=== PATIENT | male | born 1955 | race Asian ===

== ENCOUNTER 2016-12-03 17:06 | Inpatient (IN) | payer MEDICAID ==
[~2016-12-03] VITALS: Ht 167.6 cm; Wt 96.8 kg
[~2016-12-03 17:06] MED LIST: ALBU8.5H IH; ALLO100T PO; AMLO-511 PO; ASPI-556 PO; ATOR10TA84 PO; BECL8.7A5 IH; CARV12 PO; FAMO20 PO; FURO20 PO; GABA-531 PO; LISI-662 PO; MONT10TA21 PO; TAMS0.4C32 PO
[2016-12-03] MEDS ORDERED: FURO40 PO (17:36)
[2016-12-03] MEDS ORDERED: LISI-662 PO (17:36)
[2016-12-03] MEDS ORDERED: ATOR10TA84 PO (17:36)
[2016-12-03] MEDS ORDERED: TAMS0.4C32 PO (17:36)
[2016-12-03] MEDS ORDERED: ASPI81 PO (17:36)
[2016-12-03] MEDS ORDERED: CARV12 PO (17:37)
[2016-12-03] MEDS ORDERED: ISON100L PO (17:37)
[2016-12-03] MEDS ORDERED: ALLO100T PO (17:37)
[2016-12-03] MEDS ORDERED: AMLO-511 PO (17:37)
[2016-12-03] MEDS ORDERED: FAMO20 PO (17:38)
[2016-12-03] MEDS ORDERED: PYRI50 PO (17:38)
[2016-12-03] MEDS ORDERED: MONT10TA21 PO (17:38)
[2016-12-03 18:52] LABS: BASOPHILS % (AUTO) 0.3 % (0.0-2.0); EOSINOPHILS % (AUTO) 1.4 % (1.0-6.0); HEMATOCRIT 44.6 % (41-53); HEMOGLOBIN 14.9 g/dL (13.5-17.5); LYMPHOCYTES # (AUTO) 1.5 K/uL (1.0-4.8); LYMPHOCYTES % (AUTO) 12.6 % (22.0-44.0); MEAN CORPUSCULAR HEMOGLOBIN 32.7 pg (26.0-34.0); MEAN CORPUSCULAR HGB CONC 33.3 G/dL (31.0-37.0); MEAN CORPUSCULAR VOLUME 98 fL (80-100); MONOCYTES % (AUTO) 8.2 % (2.0-9.0); NEUTROPHILS # (AUTO) 9.5 K/uL (1.8-7.7); NEUTROPHILS % (AUTO) 77.5 % (40.0-70.0); PLATELET COUNT (AUTO) 245 K/uL (150-450); RED BLOOD CELL COUNT(AUTO) 4.55 MIL/uL (4.50-5.90); RED CELL DISTRIBUTION WIDTH 13.8 % (11.5-14.5); WHITE BLOOD COUNT (AUTO) 12.2 K/uL (4.5-11.0)
[2016-12-03 19:00] LABS: CREATININE 1.31 mg/dL (0.60-1.30); POTASSIUM 3.4 mmol/L (3.5-5.1)
[2016-12-03 19:05] LABS: ALBUMIN 3.9 g/dL (3.4-5.0); BILIRUBIN,TOTAL 0.7 mg/dL (0.1-1.0); TOTAL PROTEIN, SERUM 7.8 g/dL (6.4-8.2)
[2016-12-03] MEDS ORDERED: ONDANSETRON HCL 4 MG/2 ML VIAL IVP PRN (20:15)
[2016-12-03] MEDS ORDERED: ACETAMINOPHEN 325 MG TABLET PO PRN (20:15)
[2016-12-03] MEDS ORDERED: 0.9% SODIUM CHLORIDE 10 ML SYRINGE IVP PRN (20:15)
[2016-12-03] MEDS ORDERED: ISON100 PO (20:19)
[2016-12-04] MEDS: PYRIDOXINE HCL 50 MG TABLET PO SCH (16:13)
[2016-12-04] MEDS: ALLOPURINOL 100 MG TABLET PO SCH (16:13)
[2016-12-04] MEDS: LISINOPRIL 20 MG TABLET PO SCH (16:13)
[2016-12-04] MEDS: AmLODIPine BESYLATE 5 MG TABLET PO SCH (16:13)
[2016-12-04] MEDS: FAMOTIDINE 20 MG TABLET PO SCH (16:14)
[2016-12-04] MEDS: ATORVASTATIN CALCIUM 10 MG TABLET PO SCH (16:14)
[2016-12-04] MEDS: TAMSULOSIN HCL 0.4 MG CAPSULE PO SCH (16:14)
[2016-12-04] MEDS: FUROSEMIDE 40 MG TABLET PO SCH (16:14)
[2016-12-04] MEDS: MONTELUKAST SODIUM 10 MG TABLET PO SCH (16:14)
[2016-12-04] MEDS: ASPIRIN 81 MG CHEWABLE TABLET PO SCH (16:14)
[2016-12-04] MEDS: CARVEDILOL 12.5 MG TABLET PO SCH (16:15)
[2016-12-04] MEDS: ISONIAZID 300 MG TABLET PO SCH (16:15)
[2016-12-04 21:44] VITALS: BP 120/63
[2016-12-04] MEDS ORDERED: POTASSIUM CHLORIDE 20 MEQ ER TABLET PO ONE (21:45)
[2016-12-04] MEDS ORDERED: PNEUMOCOCCAL VACCINE POLYVALENT 0.5 ML VIAL [PPSV23] IM ONE (22:45)
[2016-12-05] VITALS (8 sets, daily range): BP systolic 104–143; BP diastolic 53–76
[2016-12-05 07:18] LABS: BASOPHILS # (AUTO) 0.01 K/uL (0.00-0.20); BASOPHILS % (AUTO) 0.1 % (0.0-2.0); EOSINOPHILS # (AUTO) 0.05 K/uL (0.00-0.70); EOSINOPHILS % (AUTO) 0.44 % (1.0-6.0); HEMATOCRIT 43.1 % (41-53); HEMOGLOBIN 14.7 g/dL (13.5-17.5); LYMPHOCYTES # (AUTO) 1.6 K/uL (1.0-4.8); LYMPHOCYTES % (AUTO) 15.8 % (22.0-44.0); MEAN CORPUSCULAR VOLUME 97 fL (80-100); MONOCYTES % (AUTO) 10.3 % (2.0-9.0); NEUTROPHILS # (AUTO) 7.5 K/uL (1.8-7.7); NEUTROPHILS % (AUTO) 73.4 % (40.0-70.0); PLATELET COUNT (AUTO) 248 K/uL (150-450); RED BLOOD CELL COUNT(AUTO) 4.44 MIL/uL (4.50-5.90); RED CELL DISTRIBUTION WIDTH 13.3 % (11.5-14.5); WHITE BLOOD COUNT (AUTO) 10.2 K/uL (4.5-11.0)
[2016-12-05 08:08] LABS: ALBUMIN 3.7 g/dL (3.4-5.0); BILIRUBIN,TOTAL 0.9 mg/dL (0.1-1.0); CALCIUM, TOTAL 9.2 mg/dL (8.8-10.5); CHOL/HDL RATIO 2.9 (4.2-7.3); CREATININE 1.49 mg/dL (0.60-1.30); MAGNESIUM 2.2 mg/dL (1.80-2.40); POTASSIUM 3.8 mmol/L (3.5-5.1); THYROID STIMULATING HORMONE 1.05 uIU/mL (0.36-3.74); TOTAL PROTEIN, SERUM 8.1 g/dL (6.4-8.2)
[2016-12-05] MEDS: ASPIRIN 81 MG CHEWABLE TABLET PO SCH (08:09)
[2016-12-05] MEDS: TAMSULOSIN HCL 0.4 MG CAPSULE PO SCH (08:10)
[2016-12-05] MEDS: FAMOTIDINE 20 MG TABLET PO SCH (08:10)
[2016-12-05] MEDS: ATORVASTATIN CALCIUM 10 MG TABLET PO SCH (08:10)
[2016-12-05] MEDS: MONTELUKAST SODIUM 10 MG TABLET PO SCH (08:10)
[2016-12-05] MEDS: PYRIDOXINE HCL 50 MG TABLET PO SCH (08:10)
[2016-12-05] MEDS: FUROSEMIDE 40 MG TABLET PO SCH (08:10)
[2016-12-05] MEDS: ALLOPURINOL 100 MG TABLET PO SCH (08:10)
[2016-12-05] MEDS: CARVEDILOL 12.5 MG TABLET PO SCH (08:10)
[2016-12-05] MEDS: ISONIAZID 300 MG TABLET PO SCH (08:10)
[2016-12-05 08:36] LABS: HEMOGLOBIN A1C 5.4 % (4.5-6.2)
[2016-12-05] MEDS: LISINOPRIL 20 MG TABLET PO SCH (09:33)
[2016-12-05] MEDS: AmLODIPine BESYLATE 5 MG TABLET PO SCH (09:33)
[2016-12-06 04:12] VITALS: BP 107/72
[2016-12-06 07:14] VITALS: BP 104/52
[2016-12-06] MEDS: ATORVASTATIN CALCIUM 10 MG TABLET PO SCH (08:21)
[2016-12-06] MEDS: ASPIRIN 81 MG CHEWABLE TABLET PO SCH (08:21)
[2016-12-06] MEDS: LISINOPRIL 20 MG TABLET PO SCH (08:21)
[2016-12-06] MEDS: FUROSEMIDE 40 MG TABLET PO SCH (08:21)
[2016-12-06] MEDS: MONTELUKAST SODIUM 10 MG TABLET PO SCH (08:21)
[2016-12-06] MEDS: PYRIDOXINE HCL 50 MG TABLET PO SCH (08:21)
[2016-12-06] MEDS: FAMOTIDINE 20 MG TABLET PO SCH (08:21)
[2016-12-06] MEDS: AmLODIPine BESYLATE 5 MG TABLET PO SCH (08:21)
[2016-12-06] MEDS: TAMSULOSIN HCL 0.4 MG CAPSULE PO SCH (08:21)
[2016-12-06] MEDS: ALLOPURINOL 100 MG TABLET PO SCH (08:21)
[2016-12-06] MEDS: CARVEDILOL 12.5 MG TABLET PO SCH (08:21)
[2016-12-06] MEDS: ISONIAZID 300 MG TABLET PO SCH (08:21)
[2016-12-06 11:13] VITALS: BP 106/56
== END 2016-12-06 14:40 | disposition home or self-care (01) | DRG 45 ==
LOC: EMS 17:09 → AHU 12-04 11:53 → 5S 12-04 20:21
PROVIDERS: ADMIT Family Medicine; ATTEND Family Medicine
PROC: 3E0234Z Introduction of Serum, Toxoid and Vaccine into Muscle, Percutaneous Approach (ICD-10-PCS; principal; 2016-12-06)
DX: I63.9 Cerebral infarction, unspecified (principal); I11.0 Hypertensive heart disease with heart failure; I50.9 Heart failure, unspecified; G81.94 Hemiplegia, unspecified affecting left nondominant side; E78.00 Pure hypercholesterolemia, unspecified; R20.0 Anesthesia of skin; K21.9 Gastro-esophageal reflux disease without esophagitis; E78.5 Hyperlipidemia, unspecified; N40.0 Benign prostatic hyperplasia without lower urinary tract symptoms; M10.00 Idiopathic gout, unspecified site; Z79.899 Other long term (current) drug therapy; Z79.82 Long term (current) use of aspirin; Z82.49 Family history of ischemic heart disease and other diseases of the circulatory system; Z83.3 Family history of diabetes mellitus; Z23 Encounter for immunization
CPT/HCPCS: 70450; 70544; 70551; 80307; 83036; 83735; 84443; 90471; 93005; 93306; 93880; 99285

== ENCOUNTER → 2017-03-29 | Outpatient (CLI) | payer MEDICAID ==
[~2017-03-29] MED LIST changes: -ALBU8.5H IH; -ASPI-556 PO; +ASPI81 PO; -BECL8.7A5 IH; -FURO20 PO; +FURO40 PO; -GABA-531 PO; +ISON100 PO; +PYRI50 PO
== END | disposition home or self-care (01) ==
LOC: RADPV 09:29
PROVIDERS: ATTEND Internal Medicine Nephrology
DX: N28.1 Cyst of kidney, acquired (principal)
CPT/HCPCS: 76770